=== PATIENT | female | born 1985 | race Caucasian/White ===

== ENCOUNTER → 2018-05-08 | Outpatient (CLI) | payer OTHER ==
--- NOTE | 2018-05-10 08:15 | MR ---
EXAMINATION TYPE: MR lumbar spine wo con DATE OF EXAM: 05/08/2018 COMPARISON: NONE HISTORY: Neck and lower back pain, no trauma TECHNIQUE: T1 and T2 axial and sagittal images of the lumbar spine are submitted. FINDINGS: There is no abnormal signal seen within the visualized spinal cord or paraspinal soft tissu es. Multiple gallstones. At L1-2 there is no evidence of disc herniation. No degenerative disc disease. No canal stenosis or f oraminal encroachment. At L2-3 there is no evidence of disc herniation. No degenerative disc disease. No canal stenosis or f oraminal encroachment At L3-4 there is no evidence of disc herniation. No degenerative disc disease. No canal stenosis or f oraminal encroachment At L4-5 there is no evidence of disc herniation. No degenerative disc disease. No canal stenosis or f oraminal encroachment At L5-S1 there is broad-based central left paracentral disc bulging with disc desiccation. Neural for marty remain patent. No Canal stenosis. IMPRESSION: 1. At L5-S1 there is broad-based central left paracentral disc bulging with disc desiccation. Neural foramina remain patent. No Canal stenosis. 2. Cholelithiasis. EXAMINATION TYPE: MR cervical spine wo con DATE OF EXAM: 05/08/2018 COMPARISON: NONE HISTORY: Neck and lower back pain, no trauma TECHNIQUE: T1 sagittal and coronal, T2 sagittal, and gradient echo axial views of the cervical spine are submitted. FINDINGS: The cranial cervical junction is preserved. There is no abnormal signal seen within the sp inal cord or paraspinal soft tissues. At C2-3 there is no disc herniation or canal stenosis. No foraminal encroachment.. At C3-4 there is uncovertebral joint hypertrophy greater on the right with right paracentral and late ral disc bulging capped by spur. Mild right-sided foraminal encroachment. No Canal stenosis. At C4-5 there is no disc herniation or canal stenosis. There is mild to joint hypertrophy bilaterally . Neural foramina remain patent. At C5-6 there is no disc herniation or canal stenosis. Neural foramina are patent. At C6-7 there is no disc herniation or canal stenosis. No foraminal encroachment At C7-T1 there is no disc herniation or canal stenosis. No foraminal encroachment IMPRESSION: 1. Uncovertebral joint hypertrophy and right paracentral and lateral disc bulging capped by spur C3- C4 results in mild right neural foraminal encroachment but no canal stenosis.
== END | disposition home or self-care (01) ==
LOC: RADMRIMAIN 21:01
PROVIDERS: ATTEND Internal Medicine
DX: M50.21 Other cervical disc displacement, high cervical region (principal); M99.71 Connective tissue and disc stenosis of intervertebral foramina of cervical region; M99.73 Connective tissue and disc stenosis of intervertebral foramina of lumbar region; M51.27 Other intervertebral disc displacement, lumbosacral region
CPT/HCPCS: 72141; 72148

== ENCOUNTER 2025-06-01 06:31 | Emergency (ER) | payer OTHER ==
--- NOTE | 2025-06-01 07:22 | ED ---
General Adult HPI - General Chief complaint: OB/Uterine Contractions Stated complaint: 12 wks- Cramping Time Seen by Provider: 06/01/25 07:20 Source: patient, RN notes reviewed Mode of arrival: ambulatory Limitations: no limitations - History of Present Illness Initial comments: 40-year-old G7, female presented to the ER for evaluation of abdominal cramping. Last menstrual cycle 03/11/25. Patient reports around 11 AM last night she started to experience intermittent lower abdominal cramping. She states it has increased in intensity throughout the night. She states it is twisting tightening lower abdominal discomfort which she believes is made worse by laying flat. Patient denies any vaginal bleeding or discharge. She has taken [id number] ibuprofen without improvement. She denies any dysuria, increasing urinary frequency or hematuria. Denies any fevers or chills. She does admit to nausea given pain no vomiting. Patient has not followed up with an tube skiver at this time as she is inbetween insuances. Patient denies any chest pain, shortness of breath, peripheral edema, fevers, chills or other complaints. - Related Data Previous Rx's Medication Instructions Recorded Erz-Aeak-Efhsn Acid 1 each PO DAILY #30 cap 06/01/25 [-U Capsule] Allergies Allergy/AdvReac Type Severity Reaction Status Date / Time amoxicillin Allergy Rash/Hives Verified 06/01/25 06:34 dicyclomine [From Bentyl] Allergy Rash/Hives Verified 06/01/25 06:35 doxycycline Allergy Rash/Hives Verified 06/01/25 06:35 omeprazole Allergy Rash/Hives Verified 06/01/25 06:35 Review of Systems ROS Statement: Those systems with pertinent positive or pertinent negative responses have been documented in the HPI. ROS Other: All systems not noted in ROS Statement are negative. Past Medical History Past Medical History: Osteoarthritis (OA) History of Any Multi-Drug Resistant Organisms: None Reported Past Surgical History: No Surgical Hx Reported Past Psychological History: Anxiety, Depression Smoking Status: Former smoker Past Alcohol Use History: None Reported Past Drug Use History: None Reported General Exam Limitations: no limitations General appearance: alert, in no apparent distress Respiratory exam: Present: normal lung sounds bilaterally. Absent: respiratory distress, wheezes, rales, rhonchi, stridor Cardiovascular Exam: Present: regular rate, normal rhythm, normal heart sounds. Absent: systolic murmur, diastolic murmur, rubs, gallop, clicks GI/Abdominal exam: Present: soft, tenderness (lower abdomen -focally left sided suprapubic), normal bowel sounds Extremities exam: Present: normal inspection, full ROM, normal capillary refill. Absent: tenderness, pedal edema, joint swelling, calf tenderness Neurological exam: Present: alert, oriented X3, CN II-XII intact Skin exam: Present: warm, dry, intact, normal color. Absent: rash Course Vital Signs 06/01/25 06:32 Temperature 97.6 F Pulse Rate 97 Respiratory 18 Rate Blood Pressure 147/101 O2 Sat by Pulse 99 Oximetry Medical Decision Making - Medical Decision Making Was pt. sent in by a medical professional or institution (, [facility], ROADS SUPERINTENDENT, urgent care, hospital, or long-term...) When possible be specific @ -[No] Did you speak to anyone other than the patient for history (EMS, parent, family, police, friend...)? What history was obtained from this source @ -[No] Did you review nursing and triage notes (agree or disagree)? Why? @ -[I reviewed and agree with nursing and triage notes] Were old charts reviewed (outside hosp., previous admission, EMS record, old EKG, old radiological studies, urgent care reports/EKG's, long-term records)? Report findings @ -[No old charts were reviewed] Differential Diagnosis (chest pain, altered mental status, abdominal pain women, abdominal pain men, vaginal bleeding, weakness, fever, dyspnea, syncope, headache, dizziness, GI bleed, back pain, seizure, CVA, palpatations, mental health, musculoskeletal)? @ -[not applicable] EKG interpreted by me (3pts min.). @ -[As above] X-rays interpreted by me (1pt min.). @ -[None done] CT interpreted by me (1pt min.). @ -[None done] U/S interpreted by me (1pt. min.). @ -[None done] What testing was considered but not performed or refused? (CT, X-rays, U/S, labs)? Why? @ -[None] What meds were considered but not given or refused? Why? @ -[None] Did you discuss the management of the patient with other professionals (professionals i.e. , PA, ROADS SUPERINTENDENT, lab, RT, psych nurse, social director, radiation oncology nurse, teacher, army officer, medical case manager)? Give summary @ -[No] Was smoking cessation discussed for >3mins.? @ -[No] Was critical care preformed (if so, how long)? @ -[No] Were there social determinants of health that impacted care today? How? (Homeles sness, low income, unemployed, alcoholism, drug addiction, transportation, low edu. Level, literacy, decrease access to med. care, penitentiary, rehab)? @ -[No] Was there de-escalation of care discussed even if they declined (Discuss DNR or withdrawal of care, Hospice)? DNR status @ -[No] What co-morbidities impacted this encounter? (DM, HTN, Smoking, COPD, CAD, Cancer, CVA, ARF, Chemo, Hep., AIDS, mental health diagnosis, sleep apnea, morbid obesity)? @ -[None] Was patient admitted / discharged? Hospital course, mention meds given and route, prescriptions, significant lab abnormalities, going to OR and other pertinent info. @ -[hospital course] Undiagnosed new problem with uncertain prognosis? @ -[No] Drug Therapy requiring intensive monitoring for toxicity (Heparin, Nitro, Insulin, Cardizem)? @ -[No] Were any procedures done? @ -[No] Diagnosis/symptom? @ -[default] Acute, or Chronic, or Acute on Chronic? @ -[default] Uncomplicated (without systemic symptoms) or Complicated (systemic symptoms)? @ -[default] Side effects of treatment? @ -[No] Exacerbation, Progression, or Severe Exacerbation? @ -[No] Poses a threat to life or bodily function? How? (Chest pain, [place], [place], pneumonia, PE, COPD, DKA, ARF, appy, cholecystitis, CVA, Diverticulitis, Homicidal, Suicidal, threat to staff... and all critical care pts) @ -[No] - Lab Data Result diagrams: 06/01/25 07:20 06/01/25 07:20 Lab Results 06/01/25 06/01/25 06/01/25 Range/Units 06:55 07:20 07:20 WBC 6.41 (4.50-10.00) 10*3/uL RBC 4.20 (4.10-5.20) 10*6/uL Hgb 12.6 (12.0-15.0) g/dL Hct 37.1 L (37.2-46.3) % MCV 88.3 (80.0-97.0) fL MCH 30.0 (27.0-32.0) pg MCHC 34.0 (32.0-37.0) g/dL Plt Count 219 (140-440) 10*3/uL MPV 9.1 L (9.5-12.2) fL Immature Gran % (Auto) 0.3 % Neutrophils % 61.8 % Lymphocytes % 28.5 % Monocytes % 6.2 % Eosinophils % 2.3 % Basophils % 0.9 % Immature Gran # 0.02 (0.00-0.04) 10*3/uL Neutrophils # 3.95 (1.80-7.70) 10*3/uL Lymphocytes # 1.83 (0.90-5.00) 10*3/uL Monocytes # 0.40 (0.20-1.00) 10*3/uL Eosinophils # 0.15 (0.04-0.35) 10*3/uL Basophils # 0.06 (0.00-0.10) 10*3/uL Sodium 137 (137-145) mmol/L Potassium 3.7 (3.5-5.1) mmol/L Chloride 106 (98-107) mmol/L Carbon Dioxide 19 L (22-30) mmol/L Anion Gap 12 mmol/L BUN 12 (7-17) mg/dL Creatinine 0.45 L (0.52-1.04) mg/dL Est GFR (CKD-EPI)AfAm >90 (>60 ml/min/1.73 sqM) Est GFR (CKD-EPI)NonAf >90 (>60 ml/min/1.73 sqM) Glucose 127 H (74-99) mg/dL Calcium 9.0 (8.4-10.2) mg/dL Total Bilirubin 0.4 (0.2-1.3) mg/dL AST 16 (14-36) U/L ALT 16 (4-34) U/L Alkaline Phosphatase 57 (38-126) U/L Total Protein 6.2 L (6.3-8.2) g/dL Albumin 4.0 (3.5-5.0) g/dL HCG, Quant 48031.8 mIU/mL Blood Type O Positive Blood Type Recheck O Pos Bld Type Recheck Status No Disposition Clinical Impression: Abdominal cramping affecting Disposition: HOME SELF-CARE Condition: Stable Instructions (If sedation given, give patient instructions): (ED), How to Stop Smoking (ED), Abdominal Pain in (ED) Additional Instructions: Closely with PLASTIC EYE TECHNICIAN for repeat ultrasound. Have serial hCG drawn in 48 hours. has been sent to your pharmacy. I had recommended cessation of all nicotine products. Return to the ER for any new or worsening concerns Prescriptions: Llh-Qgqk-Icjgd Acid [-U Capsule] 1 each PO DAILY #30 cap Is patient prescribed a controlled substance at d/c from ED?: No Referrals: Rex Howard [Primary Care Provider] - 1-2 days Rebecca Medina MD [STAFF PHYSICIAN] - 1-2 days Time of Disposition: 09:16
[2025-06-01] MEDS: ACETAMINOPHEN TAB 325 MG TAB PO STA (07:30)
[2025-06-01] MEDS: SODIUM CHLORIDE 0.9% 1,000 ML IV ONE (07:32)
[2025-06-01 07:36] LABS: Basophils # (A) 0.06 10*3/uL (0.00-0.10); Basophils % (A) 0.9 %; Eosinophils # (A) 0.15 10*3/uL (0.04-0.35); Eosinophils % (A) 2.3 %; HCT 37.1 % (37.2-46.3); HGB 12.6 g/dL (12.0-15.0); Lymphocytes # (A) 1.83 10*3/uL (0.90-5.00); Lymphocytes % (A) 28.5 %; MCH 30.0 pg (27.0-32.0); MCHC 34.0 g/dL (32.0-37.0); MCV 88.3 fL (80.0-97.0); Monocytes # (A) 0.40 10*3/uL (0.20-1.00); Monocytes % (A) 6.2 %; Neutrophils # (A) 3.95 10*3/uL (1.80-7.70); Neutrophils % (A) 61.8 %; Platelet Count 219 10*3/uL (140-440); RBC 4.20 10*6/uL (4.10-5.20); RDW 13.4 % (11.5-14.5); WBC 6.41 10*3/uL (4.50-10.00)
[2025-06-01 07:48] LABS: ALT 16 U/L (4-34); AST 16 U/L (14-36); African American GFR (CKD) >90 (>60 ml/min/1.73 sqM); Albumin 4.0 g/dL (3.5-5.0); Alkaline Phosphatase 57 U/L (38-126); Anion Gap 12 mmol/L; Blood Urea Nitrogen 12 mg/dL (7-17); Calcium 9.0 mg/dL (8.4-10.2); Carbon Dioxide 19 mmol/L (22-30); Chloride 106 mmol/L (98-107); Glucose 127 mg/dL (74-99); Non-African American GFR(CKD) >90 (>60 ml/min/1.73 sqM); Potassium 3.7 mmol/L (3.5-5.1); Sodium 137 mmol/L (137-145); Total Protein 6.2 g/dL (6.3-8.2)
--- NOTE | 2025-06-01 08:22 | US ---
EXAMINATION TYPE: Transabdominal DATE OF EXAM: 06/01/2025 8:00 AM COMPARISON: NONE CLINICAL INDICATION: Female, 40 years old with history of abd cramping; Cramping. TECHNIQUE: Transabdominal (TA) with grayscale and color Doppler imaging including first trimester pre gnancy. FINDINGS: EXAM MEASUREMENTS: GESTATIONAL AGE / DATING Physician Established: Not yet established Dates by LMP: (11 weeks/5 days) EDC: 12/16/2025 Dates by First Scan: No previous this is first scan Dates by Current Scan for: (11 weeks/1 days) EDC: 12/20/2025 MATERNAL ANATOMY Uterus: 15.1 x 9.4 x 6.6 cm Right Ovary: 2.8 x 2.1 x 1.8 cm Left Ovary: 3.2 x 2.0 x 1.8 cm Post CDS / Adnexa: no free fluid Presence of free fluid: no Presence of corpus luteal cyst: left ovary = 1.6 x 1.7 x 1.7 cm Presence of subchorionic bleed: fundal = 1.7 x 2.6 x 2.8 cm GESTATION / SURVEY CRL: 4.3 cm (11 weeks/1 days) Gestational Sac morphology: unremarkable Gestational Sac MSD: seen, not measured Yolk Sac (normal less than 6mm): not seen Cardiac Activity/Heart Rate: 167 bpm Rhythm: Normal IUP: Viable IUP Age Appropriate Anatomy Limbs: Visualized Calvarium: Visualized Date of LMP: 03/11/2025, Beta HcG (if available): Not available at this time IMPRESSION: 1. Single live intrauterine with calculated ultrasound age of 11 weeks 1 day. Yolk sac not definitively visualized at this time. [facility], , 06/01/2025 8:20 AM
[2025-06-01 08:29] LABS: HCG,Quantitative Serum 49742.8 mIU/mL
[2025-06-01 09:49] LABS: Bilirubin,Urine Negative (Negative); Blood,Urine Negative (Negative); Color,Urine Colorless; Glucose,Urine (UA) Negative (Negative); Ketones,Urine Negative (Negative); Leukocyte Esterase,Urine Negative (Negative); Nitrite,Urine Negative (Negative); PH, Urine 5.5 (5.0-8.0); Protein,Urine Negative (Negative); Specific Gravity,Urine 1.009 (1.001-1.035); Urobilinogen,Urine <2.0 mg/dL (<2.0)
[2025-06-01 10:04] VITALS: BP 130/80; PULSE 84; RESP 18; TEMP 98.2
== END 2025-06-01 10:02 | disposition home or self-care (01) ==
LOC: EC 06:31
DX: O26.891 Other specified pregnancy related conditions, first trimester (principal); R10.30 Lower abdominal pain, unspecified; Z87.891 Personal history of nicotine dependence; Z88.0 Allergy status to penicillin; Z88.8 Allergy status to other drugs, medicaments and biological substances; Z3A.12 12 weeks gestation of pregnancy
CPT/HCPCS: 36415; 76801; 80053; 81003; 84702; 85025; 86900; 86901; 96360; 99284

== ENCOUNTER 2025-06-05 19:48 | Emergency (ER) | payer OTHER ==
--- NOTE | 2025-06-05 21:13 | ED ---
Female Urogenital HPI - General Chief complaint: OB/Uterine Contractions Stated complaint: 12 weeks - cramping Time Seen by Provider: 06/05/25 21:11 Source: patient, RN notes reviewed Mode of arrival: ambulatory Limitations: no limitations - History of Present Illness Initial comments: 40-year-old female at approximately 11 weeks gestation presenting for lower abdominal cramping x 4 days. States she was seen for this complaint 4 days ago where they performed an ultrasound and told her that everything looked normal and to follow-up with OB. States she has been calling around to OBs however has been unsuccessful in making it an appointment. Denies vaginal bleeding or spotting. Denies fevers, nausea, vomiting. States she has been taking Tylenol for the pain and reports it is about a 4 out of 10 at the moment. States it is intermittent, comes and goes throughout the day. Denies urinary symptoms or vaginal discharge. - Related Data Previous Rx's Medication Instructions Recorded Sck-Plrt-Kheuu Acid 1 each PO DAILY #30 cap 06/01/25 [-U Capsule] Cephalexin [Keflex] 500 mg PO Q8H 7 Days #21 cap 06/05/25 Allergies Allergy/AdvReac Type Severity Reaction Status Date / Time amoxicillin Allergy Rash/Hives Verified 06/05/25 19:52 dicyclomine [From Bentyl] Allergy Rash/Hives Verified 06/05/25 19:52 doxycycline Allergy Rash/Hives Verified 06/05/25 19:52 omeprazole Allergy Rash/Hives Verified 06/05/25 19:52 Review of Systems ROS Statement: Those systems with pertinent positive or pertinent negative responses have been documented in the HPI. ROS Other: All systems not noted in ROS Statement are negative. Past Medical History Past Medical History: Osteoarthritis (OA) History of Any Multi-Drug Resistant Organisms: None Reported Past Surgical History: No Surgical Hx Reported Past Psychological History: Anxiety, Depression Smoking Status: Former smoker Past Alcohol Use History: None Reported Past Drug Use History: None Reported General Exam Limitations: no limitations General appearance: alert, in no apparent distress Head exam: Present: atraumatic, normocephalic, normal inspection Eye exam: Present: normal appearance, PERRL, EOMI. Absent: scleral icterus, conjunctival injection, periorbital swelling GI/Abdominal exam: Present: soft, normal bowel sounds. Absent: distended, tenderness, guarding, rebound, rigid Back exam: Absent: CVA tenderness (R), CVA tenderness (L) Neurological exam: Present: alert, oriented X3 Psychiatric exam: Present: normal affect, normal mood Skin exam: Present: warm, dry, intact, normal color. Absent: rash Course Vital Signs 06/05/25 06/05/25 19:50 22:02 Temperature 98.4 F 98.0 F Pulse Rate 105 H 81 Respiratory 18 15 Rate Blood Pressure 139/84 142/93 O2 Sat by Pulse 98 98 Oximetry Medical Decision Making - Medical Decision Making Was pt. sent in by a medical professional or institution (, PA, ADMINISTRATIVE EXECUTIVE, urgent care, hospital, or [facility]...) When possible be specific @ -No Did you speak to anyone other than the patient for history (EMS, parent, family, police, friend...)? What history was obtained from this source @ -No Did you review nursing and triage notes (agree or disagree)? Why? @ -I reviewed and agree with nursing and triage notes Were old charts reviewed (outside hosp., previous admission, EMS record, old EKG, old radiological studies, urgent care reports/EKG's, [facility] records)? Report findings @ -Yes, reviewed previous ER visits including ultrasound which revealed single live intrauterine calculated 11 weeks 1 day, yolk sac not identified. Prior hCG 49,742 Differential Diagnosis (chest pain, altered mental status, abdominal pain women, abdominal pain men, vaginal bleeding, weakness, fever, dyspnea, syncope, headache, dizziness, GI bleed, back pain, seizure, CVA, palpatations, mental health, musculoskeletal)? @ -Differential Spontaneous , threatened , molar , ectopic , bloody show, incompetent cervix, abruptioplacenta, placenta previa, uterine rupture, dysfunctional uterine bleeding, hemorrhage, uterine fibroids, this is not meant to be an all-inclusive list. EKG interpreted by me (3pts min.). @ -None X-rays interpreted by me (1pt min.). @ -None done CT interpreted by me (1pt min.). @ -None done U/S interpreted by me (1pt. min.). @ -None done What testing was considered but not performed or refused? (CT, X-rays, U/S, labs)? Why? @ -None What meds were considered but not given or refused? Why? @ -None Did you discuss the management of the patient with other professionals (professionals i.e. , PA, ADMINISTRATIVE EXECUTIVE, lab, RT, psych nurse, hospital social worker, nurse practitioner manager, teacher, education officer, rn case manager)? Give summary @ -No Was smoking cessation discussed for >3mins.? @ -No Was critical care preformed (if so, how long)? @ -No Were there social determinants of health that impacted care today? How? (Homelessness, low income, unemployed, alcoholism, drug addiction, transportation, low edu. Level, literacy, decrease access to med. care, correction, rehab)? @ -No Was there de-escalation of care discussed even if they declined (Discuss DNR or withdrawal of care, Hospice)? DNR status @ -No What co-morbidities impacted this encounter? (DM, HTN, Smoking, COPD, CAD, Cancer, CVA, ARF, Chemo, Hep., AIDS, mental health diagnosis, sleep apnea, morbid obesity)? @ -None Was patient admitted / discharged? Hospital course, mention meds given and route, prescriptions, significant lab abnormalities, going to OR and other pertinent info. @ -Discharge. 40-year-old female at approximately 11 weeks gestation presenting for abdominal cramping x 4 days. No vaginal bleeding. Abdomen soft and nontender. Lab work largely unremarkable. hCG is 55,000, improved from 49,704 days ago. Urinalysis shows few white blood cells. Will treat for asymptomatic bacteremia. Discussed results with patient. I do not identify emergent etiology causing abdominal cramping, however discussed it is important that patient follow-up with OB. Appropriate return precautions discussed. Advised to continue Tylenol as needed for pain. Case was discussed with my ED attending Dr. Dobbs Undiagnosed new problem with uncertain prognosis? @ -No Drug Therapy requiring intensive monitoring for toxicity (Heparin, Nitro, Insulin, Cardizem)? @ -No Were any procedures done? @ -No Diagnosis/symptom? @ -Abdominal pain in Acute, or Chronic, or Acute on Chronic? @ -Acute Uncomplicated (without systemic symptoms) or Complicated (systemic symptoms)? @ -Default Side effects of treatment? @ -No Exacerbation, Progression, or Severe Exacerbation? @ -No Poses a threat to life or bodily function? How? (Chest pain, [place], [place], pneumonia, PE, COPD, DKA, ARF, appy, cholecystitis, CVA, Diverticulitis, Homicidal, Suicidal, threat to staff... and all critical care pts) @ -Unlikely at this time - Lab Data Result diagrams: 06/05/25 21:38 06/05/25 21:38 Lab Results 06/05/25 06/05/25 06/05/25 Range/Units 21:15 21:38 21:38 WBC 8.83 (4.50-10.00) 10*3/uL RBC 4.19 (4.10-5.20) 10*6/uL Hgb 13.0 (12.0-15.0) g/dL Hct 37.2 (37.2-46.3) % MCV 88.8 (80.0-97.0) fL MCH 31.0 (27.0-32.0) pg MCHC 34.9 (32.0-37.0) g/dL Plt Count 237 (140-440) 10*3/uL MPV 9.3 L (9.5-12.2) fL Immature Gran % (Auto) 0.3 % Neutrophils % 57.2 % Lymphocytes % 31.3 % Monocytes % 8.5 % Eosinophils % 2.0 % Basophils % 0.7 % Immature Gran # 0.03 (0.00-0.04) 10*3/uL Neutrophils # 5.05 (1.80-7.70) 10*3/uL Lymphocytes # 2.76 (0.90-5.00) 10*3/uL Monocytes # 0.75 (0.20-1.00) 10*3/uL Eosinophils # 0.18 (0.04-0.35) 10*3/uL Basophils # 0.06 (0.00-0.10) 10*3/uL Sodium 137 (137-145) mmol/L Potassium 3.8 (3.5-5.1) mmol/L Chloride 107 (98-107) mmol/L Carbon Dioxide 20 L (22-30) mmol/L Anion Gap 10 mmol/L BUN 4 L (7-17) mg/dL Creatinine 0.42 L (0.52-1.04) mg/dL Est GFR (CKD-EPI)AfAm >90 (>60 ml/min/1.73 sqM) Est GFR (CKD-EPI)NonAf >90 (>60 ml/min/1.73 sqM) Glucose 78 (74-99) mg/dL Calcium 9.6 (8.4-10.2) mg/dL Total Bilirubin 0.4 (0.2-1.3) mg/dL AST 16 (14-36) U/L ALT 14 (4-34) U/L Alkaline Phosphatase 59 (38-126) U/L Total Protein 6.7 (6.3-8.2) g/dL Albumin 4.4 (3.5-5.0) g/dL HCG, Quant 42023.1 mIU/mL Urine Color Colorless Urine Appearance Cloudy H (Clear) Urine pH 5.5 (5.0-8.0) Ur Specific [place] 1.007 (1.001-1.035) Urine Protein Negative (Negative) Urine Glucose (UA) Negative (Negative) Urine Ketones Negative (Negative) Urine Blood Negative (Negative) Urine Nitrite Negative (Negative) Urine Bilirubin Negative (Negative) Urine Urobilinogen <2.0 (<2.0) mg/dL Ur Leukocyte Esterase Moderate H (Negative) Urine RBC 1 (0-5) /hpf Urine WBC 10 H (0-5) /hpf Urine WBC Clumps Rare H (None) /hpf Ur Squamous Epith Cells 2 (0-4) /hpf Urine Bacteria Occasional H (None) /hpf Urine Mucus Rare H (None) /hpf Urine Yeast (Budding) Few H (None) /hpf Disposition Clinical Impression: Abdominal cramping affecting , Asymptomatic bacteriuria Disposition: HOME SELF-CARE Condition: Stable Instructions (If sedation given, give patient instructions): Abdominal Pain in (ED) Additional Instructions: Take Keflex as prescribed to cover for urinary tract infection. Please follow- up with OB as discussed. Please return to the Emergency Department if symptoms worsen or any other concerns. Prescriptions: Cephalexin [Keflex] 500 mg PO Q8H 7 Days #21 cap Is patient prescribed a controlled substance at d/c from ED?: No Referrals: None,Stated [REFERRING] - 1-2 days Time of Disposition: 23:09
[2025-06-05 21:48] LABS: Basophils # (A) 0.06 10*3/uL (0.00-0.10); Basophils % (A) 0.7 %; Eosinophils # (A) 0.18 10*3/uL (0.04-0.35); Eosinophils % (A) 2.0 %; HCT 37.2 % (37.2-46.3); HGB 13.0 g/dL (12.0-15.0); Lymphocytes # (A) 2.76 10*3/uL (0.90-5.00); Lymphocytes % (A) 31.3 %; MCH 31.0 pg (27.0-32.0); MCHC 34.9 g/dL (32.0-37.0); MCV 88.8 fL (80.0-97.0); Monocytes # (A) 0.75 10*3/uL (0.20-1.00); Monocytes % (A) 8.5 %; Neutrophils # (A) 5.05 10*3/uL (1.80-7.70); Neutrophils % (A) 57.2 %; Platelet Count 237 10*3/uL (140-440); RBC 4.19 10*6/uL (4.10-5.20); RDW 13.4 % (11.5-14.5); WBC 8.83 10*3/uL (4.50-10.00)
[2025-06-05 21:59] LABS: ALT 14 U/L (4-34); AST 16 U/L (14-36); African American GFR (CKD) >90 (>60 ml/min/1.73 sqM); Albumin 4.4 g/dL (3.5-5.0); Alkaline Phosphatase 59 U/L (38-126); Anion Gap 10 mmol/L; Blood Urea Nitrogen 4 mg/dL (7-17); Calcium 9.6 mg/dL (8.4-10.2); Carbon Dioxide 20 mmol/L (22-30); Chloride 107 mmol/L (98-107); Glucose 78 mg/dL (74-99); Non-African American GFR(CKD) >90 (>60 ml/min/1.73 sqM); Potassium 3.8 mmol/L (3.5-5.1); Sodium 137 mmol/L (137-145); Total Protein 6.7 g/dL (6.3-8.2)
[2025-06-05 22:08] LABS: Bacteria,Urine Occasional /hpf; Bilirubin,Urine Negative (Negative); Blood,Urine Negative (Negative); Budding Yeast,Urine Few /hpf; Color,Urine Colorless; Glucose,Urine (UA) Negative (Negative); Ketones,Urine Negative (Negative); Leukocyte Esterase,Urine Moderate (Negative); Mucus,Urine Rare /hpf; Nitrite,Urine Negative (Negative); PH, Urine 5.5 (5.0-8.0); Protein,Urine Negative (Negative); RBC,Urine 1 /hpf (0-5); Specific Gravity,Urine 1.007 (1.001-1.035); Squamous Epithelial Cell,Urine 2 /hpf (0-4); Urobilinogen,Urine <2.0 mg/dL (<2.0); WBC,Urine 10 /hpf (0-5)
[2025-06-05 22:42] LABS: HCG,Quantitative Serum 55324.1 mIU/mL
[2025-06-05 23:34] VITALS: BP 141/92; PULSE 84; RESP 17; TEMP 98.8
== END 2025-06-05 23:34 | disposition home or self-care (01) ==
LOC: EC 19:48
DX: O26.891 Other specified pregnancy related conditions, first trimester (principal); R10.30 Lower abdominal pain, unspecified; O23.91 Unspecified genitourinary tract infection in pregnancy, first trimester; R82.71 Bacteriuria; Z87.891 Personal history of nicotine dependence; Z88.0 Allergy status to penicillin; Z88.8 Allergy status to other drugs, medicaments and biological substances; Z3A.12 12 weeks gestation of pregnancy
CPT/HCPCS: 36415; 80053; 81001; 84702; 85025; 99284